=== PATIENT | male | born 1940 | race Caucasian/White ===

== ENCOUNTER 2018-03-20 11:28 | Day surgery (SDC) | payer MEDICARE, SELFPAY ==
[2018-03-20 11:46] VITALS: BP 119/56; PULSE 79; RESP 18; TEMP 36.6; O2SAT 97; BMI 53.2
[2018-03-20 12:20] LABS: Basophils # 0.1 K/mm3 (0-0.2); Basophils % 0.7 % (0.1-2.0); Eosinophils # 0.3 K/mm3 (0.0-0.4); Eosinophils % 3.7 % (0.1-12.0); Hematocrit 39.2 % (42.0-52.0); Hemoglobin 11.9 g/dL (14.1-18.0); Lymphocytes # 1.3 K/mm3 (0.7-4.5); Lymphocytes % 18.1 K/mm3 (10-50); Mean Corpuscular HGB Conc 30.4 g/dL (31.8-35.4); Mean Corpuscular Hemoglobin 29.3 pg (27.0-31.2); Mean Corpuscular Volume 96.4 fl (80-94); Mean Platelet Volume 8.7 fl (7.4-10.4); Monocytes # 0.5 K/mm3 (0.1-1.0); Monocytes % 6.7 % (1.7-9.3); Neutrophils # 5.3 K/mm3 (1.8-7.8); Neutrophils % 70.9 % (37.0-80.0); Platelet Count 154 K/mm3 (142-424); Red Blood Count 4.06 M/mm3 (4.60-6.20); White Blood Count 7.5 K/mm3 (4.8-10.8)
[2018-03-20 12:21] LABS: Anion Gap 13.2 mEq/L (5-15); Blood Urea Nitrogen 33 mg/dL (7-18); Carbon Dioxide 28 mmol/L (21.0-32.0); Chloride 101 mmol/L (98-107); Creatinine Clearance Estimated 38 mL/min (0-300); Creatinine,Serum 1.51 mg/dL (0.70-1.30); Estimated Glomerular Filt Rate 45 ml/min (>60); GFR (African American) 55 ML/MIN (>60); Glucose 119 mg/dL (74-106); Potassium 5.2 mmoL/L (3.5-5.1); Sodium 137 mmol/L (136-145)
[2018-03-20 12:23] LABS: INR 2.03 (0.9-1.1); Prothrombin Time 22.1 seconds (9.4-11.8)
[2018-03-20 13:51] VITALS: BP 126/66; PULSE 80; RESP 18; TEMP 36.4; O2SAT 94
[2018-03-20 14:06] VITALS: BP 122/70; PULSE 80; RESP 18; O2SAT 95
--- NOTE | 2018-03-20 14:06 | HMH.ANESCL ---
[facility] Anesthesia Checklist - Patient Identification Patient Identification: Arm Band - Structural Data Admitted From: Home Planned Operative Procedure/s: biventricular pacemaker generator change Consent for Planned Operative Procedure(s) Verified: Yes Verified Documents: Surgical Consent, History and Physical - NPO Status Verified Time NPO: 00:00 - Additional verifications Anesthesia Reactions: No - Airway Assessment C-Spine Mobility Assessed: Yes (mp2) TMJ Mobility Assessed: Yes Dentition: Good Dentition - Neurological Assessment Level of Consciousness: Awake, Alert - Anesthesia Plan Anesthesia Risk discussed: Yes Anesthesia Plan: Verified ASA Class: III Anesthesia Type: [facility] Anesthesia HX I have reviewed the patient's past medical history: Yes Medical History: Reports:: Atherosclerotic Heart Disease, Atrial Fibrillation, Cardiomyopathy, Congestive Heart Failure, Chronic Obstructive Pulmonary Disease (COPD), Coronary Artery Disease, Hyperlipidemia, Hypertension, Internal Pacemaker, Valvular Heart Disease Denies:: Cancer, Diabetes Mellitus Type 1, Diabetes Mellitus Type 2, MRSA, Seizures Other Medical History: Denies: Blood Transfusion Reaction Other Surgeries: Yes: Cardiac Catheterization, Colon Resection, Open Heart Surgery (aortic valve replacement), Pacemaker, Skin Cancer Excision Amputation: No Fractures: No *Family Hx:: Cancer, Hypertension
[2018-03-20 14:21] VITALS: BP 140/78; PULSE 80; RESP 18; O2SAT 96
[2018-03-20 14:36] VITALS: BP 129/77; PULSE 80; RESP 18; O2SAT 95
--- NOTE | 2018-03-21 14:39 | HMH.PCTREV ---
Pocket Revision Date:: 03/20/18 Procedures:: 1.Removal of old generator 2.Revision of existing pocket for generator 3.Placement of new BUZZSAW OPERATOR HELPER-D generator Indications:: Device at [facility] Ischemic cardiomyopathy Informed consent:: Obtained prior to procedure. Complications:: None EBL:: Less than 10 ml. Technique:: 1% Lidocaine with epinephrine used to anesthetize the left anterior aspect of the chest.Scalpel was used to make the initial cutaneous incision and then used to dissect down to the pacemaker generator. The generator was removed from the existing pocket. Digital manipulation was required along with intermittent usage of scalpel in order to revise the pocket. The pacemaker leads were removed from the old generator and then placed and secured into the new pacemaker generator. Antibiotics were used to flush the pocket and the pacemaker was secured using 3-0 silk into the newly revised pocket. Monocryl was used to close the subcutaneous tissue and then fernanda were placed on the cutaneous area in order to approximate the incision. The area was sterilely prepped and antibiotics were applied. Patient was transferred to the postop holding area in stable condition Interrogation:: New Generator Model number: [id number] New Generator Serial number: [id number] Chronic Atrial lead model number: [id number]/52 Chronic Atrial lead serial number: [id number] P-wave: AF Impedence: 380 Ohms Chronic Left Ventricular lead model number: 1458Q/86 Chronic Left Ventricular lead serial number: [id number] R-wave: NONE Impedence: 440 Ohms Threshold:1.0 V Right Ventricular lead model number: 7121/65 Right Ventricular lead serial number: [id number] R-wave: Impedence: 490 Ohms Threshold: 2.5 V Pulse Width: 1.0 ms Explanted Generator: Model number: [id number] Serial number: [id number] Pacing Parameters: Mode: DDDR Base/Max Track: 60/110 ICD Rate Cutoffs: VT-1: Monitor VT-2: VF: 191 - 36j , 40 j Impression:: 1.Successful removal of old generator 2.Successful revision of existing pocket for new generator 3.Successful placement of new BUZZSAW OPERATOR HELPER-D generator Plan:: 1.Post-op wound care.
--- NOTE | 2018-03-21 14:48 | P.PCN_ITS ---
Pocket Revision Date:: 03/20/18 Procedures:: 1.Removal of old generator 2.Revision of existing pocket for generator 3.Placement of new SENIOR SALES ENGINEER-D generator Indications:: Device at [facility] Ischemic cardiomyopathy Informed consent:: Obtained prior to procedure. Complications:: None EBL:: Less than 10 ml. Technique:: 1% Lidocaine with epinephrine used to anesthetize the left anterior aspect of the chest.Scalpel was used to make the initial cutaneous incision and then used to dissect down to the pacemaker generator. The generator was removed from the existing pocket. Digital manipulation was required along with intermittent usage of scalpel in order to revise the pocket. The pacemaker leads were removed from the old generator and then placed and secured into the new pacemaker generator. Antibiotics were used to flush the pocket and the pacemaker was secured using 3-0 silk into the newly revised pocket. Monocryl was used to close the subcutaneous tissue and then fernanda were placed on the cutaneous area in order to approximate the incision. The area was sterilely prepped and antibiotics were applied. Patient was transferred to the postop holding area in stable condition Interrogation:: New Generator Model number: [id number] New Generator Serial number: [id number] Chronic Atrial lead model number: [id number]/52 Chronic Atrial lead serial number: [id number] P-wave: AF Impedence: 380 Ohms Chronic Left Ventricular lead model number: [id number]/86 Chronic Left Ventricular lead serial number: [id number] R-wave: NONE Impedence: 440 Ohms Threshold:1.0 V Right Ventricular lead model number: 7121/65 Right Ventricular lead serial number: [id number] R-wave: Impedence: 490 Ohms Threshold: 2.5 V Pulse Width: 1.0 ms Explanted Generator: Model number: [id number] Serial number: [id number] Pacing Parameters: Mode: DDDR Base/Max Track: 60/110 ICD Rate Cutoffs: VT-1: Monitor VT-2: VF: 191 - 36j , 40 j Impression:: 1.Successful removal of old generator 2.Successful revision of existing pocket for new generator 3.Successful placement of new SENIOR SALES ENGINEER-D generator Plan:: 1.Post-op wound care.
== END 2018-03-20 14:36 | disposition home or self-care (01) ==
LOC: OR 11:32
PROVIDERS: PCP Family Medicine; Visit Provider Internal Medicine
PROC: 0JH608Z Insertion of Defibrillator Generator into Chest Subcutaneous Tissue and Fascia, Open Approach (ICD-10-PCS; CPT 33249; principal; 2018-03-20 12:00)
DX: Z45.02 Encounter for adjustment and management of automatic implantable cardiac defibrillator (principal); T82.191A Other mechanical complication of cardiac pulse generator (battery), initial encounter; I25.5 Ischemic cardiomyopathy; I48.2 Chronic atrial fibrillation; J44.9 Chronic obstructive pulmonary disease, unspecified; I35.0 Nonrheumatic aortic (valve) stenosis; I10 Essential (primary) hypertension
CPT/HCPCS: 33225; 33241; 33249; 80048; 85025; 85610; 96374; C1882